=== PATIENT | female | born 2000 | race Hispanic/Latino ===

== ENCOUNTER 2019-08-21 22:28 | Inpatient (IN) | payer BC ==
[2019-08-21] MEDS ORDERED: Ondansetron PF 4 MG/2 ML Vial ONE (22:58)
[2019-08-21] MEDS ORDERED: Morphine 4 MG/ML VIAL ONE (22:58)
[2019-08-21 23:31] LABS: Base Excess-Venous -15.3 mmol/L (-2.0 to 3.0); CO2 Tension (PvCO2) 32.7 mmHg (40.0-50.0); Calcium, Ionized 0.94 mmol/L (See Comments:); Chloride 111 mmol/L (98-107); Hemoglobin - Calc 12.9 g/dL (12.0-16.0); Potassium 4.6 mmol/L (3.5-5.1); Sodium 133 mmol/L (138-145); vO2 Saturation-calc 49.7 % (60.0-85.0)
[2019-08-21 23:35] LABS: BHCG - Serum Negative (NEGATIVE); Pregs Control Background? CLEAR/WHITE (CLR/WHITE); Pregs Control Bar Appear? YES (CONTROL BAR)
[2019-08-21 23:39] LABS: #Basophils 0.1 thou/uL (0.0-0.2); #Lymphocytes 4.1 thou/uL (1.20-3.40); #Monocytes 0.7 thou/uL (0.11-0.59); #Neutrophils 10.6 thou/uL (1.40-6.50); %Basophils 0.7 % (0.0-1.0); %Eosinophils 0.2 % (0.0-10.0); %Lymphocytes 26.3 % (28.0-48.0); %Monocytes 4.4 % (0.0-4.0); %Neutrophils 68.4 % (31.0-61.0); Hemoglobin 12.5 g/dL (12.0-16.0); Mean Corpuscular HGB CONC 34.6 g/dL (32.0-36.0); Mean Corpuscular Hemoglobin 30.3 pg (25.0-35.0); Mean Corpuscular Volume 87.6 fL (78.0-98.0); Mean Platelet Volume 10.5 fL (7.4-10.4); Platelet Count 216 thou/uL (130-400); RBC Distribution Width 12.2 % (11.5-14.5); Red Blood Cell (RBC) Count 4.14 mill/uL (4.00-5.20); White Blood Cell (WBC) Count 15.5 thou/uL (4.8-10.8)
--- NOTE | 2019-08-21 23:47 | ULT ---
US Gallbladder RUQ HISTORY: Right upper quadrant pain. COMPARISON: None. FINDINGS: Real-time imaging of the right upper quadrant shows a normal-appearing gallbladder. No gall bladder wall thickening is seen. The common duct is 2 to 3 mm. There does appear to be a tiny amount of fluid adjacent to the gallbladder. There are diffuse fatty changes of the liver. The techno logist does describe a positive ultrasound Morrow's sign. Right kidney is normal in size and not obstructed. The liver measures 20 cm in length. The pancreas i s obscured. IMPRESSION: No evidence of gallstones. There does appear to be some minimal fluid or edema adjacent t o the gallbladder but no gallbladder wall thickening. Technologist does describe a positive ultrasound Morrow's sign. Further evaluation with hepatobiliary scan may be beneficial. The liver renee ws diffuse fatty change and appears slightly enlarged.
[2019-08-22 00:05] LABS: Bilirubin Negative (Negative); Blood, Urine Negative (Negative); Clarity Clear (Clear); Glucose, Urine (Dipstick) Greater than 1000 mg/dL (Negative); Leukocyte Negative Leu/uL (Negative); Nitrite Negative (Negative); Protein, Urine (Dipstick) 20 mg/dL (Neg-Trace); Urobilinogen Normal mg/dL (Less than 2)
[2019-08-22 00:19] LABS: ALT (SGPT) 49 U/L (8-55); AST (SGOT) 27 U/L (5-34); Albumin 3.5 g/dL (3.5-5.0); Alkaline Phosphatase 71 U/L (40-100); BUN (Urea Nitrogen) 5 mg/dL (7.0-18.7); Bilirubin, Total 0.4 mg/dL (0.2-1.2); Calc. Creatinine Clearance 0 mL/min (70-130); Calcium 7.2 mg/dL (7.8-10.44); Carbon Dioxide Less than 8 mmol/L (22-29); Chloride 109 mmol/L (98-107); Estimated GFR-MDRD Greater than 90; Globulin 3.3 g/dL (2.4-3.5); Glucose 212 mg/dL (70-105); Lipase 106 U/L (8-78); Potassium 4.8 mmol/L (3.5-5.1); Protein, Total 6.8 g/dL (6.0-8.3); Sodium 133 mmol/L (136-145)
[2019-08-22] MEDS ORDERED: Insulin Regular 100 units/100 ml in NS IVPB SCH (01:30)
[2019-08-22] MEDS ORDERED: D5 1/2 NS w/20 mEq KCL 1,000 ML ONE (02:22)
[2019-08-22] MEDS ORDERED: Dextrose 5% in Water 1,000 ML IV PRN (02:26)
[2019-08-22] MEDS ORDERED: Dextrose 5 %-0.45 % NaCl 1,000 ML IV PRN ×2 (02:26→03:00)
[2019-08-22] MEDS ORDERED: NS 0.9% w/ 20 MEQ KCL 1,000 ML/1,000 ML BAG IV PRN ×2 (02:26)
[2019-08-22] MEDS ORDERED: Dextrose 50% Abboject 50 ML SYRINGE SLOW IVP PRN (02:26)
[2019-08-22] MEDS ORDERED: D5 1/2 NS w/20 mEq KCL 1,000 ML IV PRN (02:26)
[2019-08-22] MEDS ORDERED: Sodium Chloride 0.9% 1,000 ML IV PRN ×8 (02:26→03:00)
[2019-08-22] MEDS ORDERED: PHOS-NAK 1 PKT PACK PO PRN ×4 (02:27→03:06)
[2019-08-22] MEDS ORDERED: Potassium Chloride 40 MEQ in Premix Bag 1 BAG IVPB PRN ×2 (02:27→03:06)
[2019-08-22] MEDS ORDERED: Potassium Chloride 40 MEQ in Sodium Chloride 0.9% 250 ML 250 ML IVPB PRN ×2 (02:27→03:06)
[2019-08-22] MEDS ORDERED: Magnesium 2 GM/50 ML 2 GM in Premix Bag 1 BAG IVPB PRN ×2 (02:27→03:06)
[2019-08-22] MEDS ORDERED: CCU ELECTROLYTE REPLACEMENT PROTOCOL FS PRN ×2 (02:27→03:06)
[2019-08-22] MEDS ORDERED: Potassium Phosphate 12 MMOL in Sodium Chloride 0.9% 250 ML 250 ML IV PRN ×2 (02:27→03:06)
[2019-08-22] MEDS ORDERED: Potassium Chloride 20 MEQ TAB PO PRN ×2 (02:27→03:06)
[2019-08-22] MEDS ORDERED: Potassium Phosphate 9 MMOL in Sodium Chloride 0.9% 100 ML IVPB PRN (02:27)
[2019-08-22] MEDS ORDERED: Magnesium Oxide 400 MG TAB PO PRN ×4 (02:27→03:06)
[2019-08-22] MEDS ORDERED: Potassium Phosphate 15 MMOL in Sodium Chloride 0.9% 250 ML 250 ML IV PRN ×2 (02:27→03:06)
[2019-08-22] MEDS ORDERED: HUMULIN R 100 UNITS in Sodium Chloride 0.9% 100 ML IVPB SCH (02:30)
[2019-08-22] MEDS ORDERED: ADD ELECTROLYTE REPLACEMENT SET TO PROFILE FS SCH (02:30)
[2019-08-22 02:46] VITALS: BMI 27.3
--- NOTE | 2019-08-22 02:50 | HP ---
PRIMARY CARE PHYSICIAN: The patient currently does not have a primary care physician. CHIEF COMPLAINT: Abdominal pain. HISTORY OF PRESENT ILLNESS: Ms. Harper is a pleasant 18-year-old female, who has a history of diabetes during . She says that while being , she developed diabetes mellitus and says that the diabetes continued until after the . She admits to being placed on medications for diabetes several months after being and it appears after that she has essentially lost to followup and has not been on any medications. She says that on Thursday afternoon, she was coming back from an outing and noticed that she was having pain in the right upper quadrant. She says it radiated into her chest and she also was having some nausea. She says that the pain would actually get better if she try to lay on her left side. It was worse with movement. She vomited once, but denies any fevers or chills. No change in her bowels. She denies any polyuria or polydipsia or any change in her visions. But as a result of the pain, she came to the ER for evaluation. There, she was found to be severely acidotic with a bicarb less than 8. Her pH was 7.1 on blood gas. Her blood sugar was only slightly elevated, but she has an anion gap and positive beta hydroxybutyrate, and she is being admitted for DKA. REVIEW OF SYSTEMS: All systems were reviewed and are negative except for that mentioned in the history of present illness. PAST MEDICAL HISTORY: Significant for diabetes mellitus during and hypertension. PAST SURGICAL HISTORY: She had a , as well as an appendectomy. ALLERGIES: NO KNOWN DRUG ALLERGIES. SOCIAL HISTORY: She is a nonsmoker and nondrinker. She has one child. FAMILY HISTORY: Significant for diabetes mellitus in both parents. CURRENT MEDICATIONS: None. PHYSICAL EXAMINATION: GENERAL: She is alert and oriented. She appears to be in no acute distress. She is well developed and well nourished. VITAL SIGNS: Her blood pressure was 136/90, heart rate 138, respiratory rate of 20, temperature was 100, O2 saturation is 100% on room air. HEENT: Pupils are equal, round, and reactive. Extraocular muscles are intact. Her sclerae anicteric. Throat, no erythema, no exudates. NECK: No adenopathy. No bruits. LUNGS: Clear to auscultation. There is no wheezing, no rales, no rhonchi. CARDIOVASCULAR: She has a normal S1 and S2. There is no S3 or S4. No murmurs, clicks, or rubs. Heart rate is tachycardic. ABDOMEN: Soft, obese. She does have right upper quadrant tenderness. She did have some mild rebound tenderness, but there was no guarding. Bowel sounds are present. Her liver span did appear to be slightly enlarged. EXTREMITIES: There is no clubbing or cyanosis. No edema. No calf tenderness. No joint effusions. Good dorsalis pedis and posterior tibial pulses. SKIN AND INTEGUMENT: No skin changes. No rash. LABORATORY RESULTS: White blood cell count 15.5, hemoglobin 12.5, hematocrit is 36.3, and platelet count is 216. Sodium 138, potassium 4.6, chloride is 111. Urinalysis shows ketones as well as glucose, and beta hydroxybutyrate was elevated at 3.18. She had an abdominal ultrasound in which there was evidence of fatty change. No evidence of gallstones, but there was some minimal fluid adjacent to the gallbladder, but no gallbladder wall thickening. ASSESSMENT: This is a 18-year-old female, who presents to the emergency room with abdominal pain, elevated white count, metabolic acidosis with high anion gap, I calculated it out to be approximately 16, as well as positive beta hydroxybutyrate. She will be admitted for diabetic ketoacidosis and started on an insulin drip. She may need D5 solution while on the insulin drip to protect her from hypoglycemia until her anion gap and acidosis have improved. We will re-evaluate her with regard to the abdominal pain. If this pain persist after the acidosis has improved, then it would likely be in her best interest to get a HIDA scan to rule out acalculous cholecystitis. We will place her on empiric antibiotics including Rocephin and Flagyl. In the interim, get blood cultures as well. Further recommendations to follow. Job ID: [id number]
[2019-08-22] MEDS ORDERED: CCU Electrolyte Replacement 1 EACH IVPB ONE (03:00)
[2019-08-22] MEDS ORDERED: Ondansetron ODT 4 MG TAB PO PRN (03:00)
[2019-08-22] MEDS ORDERED: NS 0.9% w/ 20 MEQ KCL 1,000 ML IV PRN ×2 (03:00)
[2019-08-22] MEDS: cefTRIAXone\\ROCEPHIN 1 GM in Sodium Chloride 0.9% 100 ML IVPB SCH (03:24)
[2019-08-22 03:36] LABS: #Basophils 0.1 thou/uL (0.0-0.2); #Monocytes 0.6 thou/uL (0.11-0.59); #Neutrophils 9.9 thou/uL (1.40-6.50); %Basophils 0.7 % (0.0-1.0); %Eosinophils 0.3 % (0.0-10.0); %Lymphocytes 21.8 % (28.0-48.0); %Monocytes 4.5 % (0.0-4.0); %Neutrophils 72.8 % (31.0-61.0); Hemoglobin 11.4 g/dL (12.0-16.0); Mean Corpuscular HGB CONC 33.5 g/dL (32.0-36.0); Mean Corpuscular Hemoglobin 28.6 pg (25.0-35.0); Mean Corpuscular Volume 85.5 fL (78.0-98.0); Mean Platelet Volume 10.5 fL (7.4-10.4); Platelet Count 204 thou/uL (130-400); RBC Distribution Width 12.1 % (11.5-14.5); Red Blood Cell (RBC) Count 3.98 mill/uL (4.00-5.20); White Blood Cell (WBC) Count 13.7 thou/uL (4.8-10.8)
[2019-08-22 03:55] LABS: Anion Gap 14 mmol/L (10-20); BUN (Urea Nitrogen) Less than 4 mg/dL (7.0-18.7); Calc. Creatinine Clearance 132 mL/min (70-130); Calcium 7.5 mg/dL (7.8-10.44); Carbon Dioxide 11 mmol/L (22-29); Chloride 110 mmol/L (98-107); Estimated GFR-MDRD Greater than 90; Glucose 228 mg/dL (70-105); Potassium 3.7 mmol/L (3.5-5.1); Sodium 131 mmol/L (136-145)
[2019-08-22 04:03] LABS: Phosphorus 1.4 mg/dL (2.3-4.7)
[2019-08-22] MEDS: Potassium Phosphate 9 MMOL in Sodium Chloride 0.9% 100 ML IVPB PRN ×2 (05:37→15:11)
[2019-08-22] MEDS: metroNIDAZOLE 500 MG in Premix Bag 1 BAG IVPB SCH ×3 (05:51→21:41)
[2019-08-22] MEDS: D5 1/2 NS w/20 mEq KCL 1,000 ML IV PRN ×4 (06:23→22:52)
[2019-08-22] MEDS ORDERED: Morphine 4 MG/ML VIAL SLOW IVP SCH (06:45)
[2019-08-22 08:25] LABS: Anion Gap 12 mmol/L (10-20); BUN (Urea Nitrogen) Less than 4 mg/dL (7.0-18.7); Calc. Creatinine Clearance 138 mL/min (70-130); Calcium 7.7 mg/dL (7.8-10.44); Carbon Dioxide 15 mmol/L (22-29); Chloride 108 mmol/L (98-107); Estimated GFR-MDRD Greater than 90; Glucose 180 mg/dL (70-105); Potassium 3.6 mmol/L (3.5-5.1); Sodium 131 mmol/L (136-145)
[2019-08-22 08:27] LABS: Phosphorus 1.3 mg/dL (2.3-4.7)
[2019-08-22] MEDS: Enoxaparin Sodium 40 MG/0.4 ML SYRINGE SC SCH (08:42)
[2019-08-22] MEDS ORDERED: FLU VACC QS2019-20(6MOS UP)/PF 60 MCG/0.5 ML SYRINGE IM ONE (09:00)
[2019-08-22] MEDS ORDERED: Prevnar 13-Val Conj/PF 0.5 ML SYRINGE IM ONE (09:00)
[2019-08-22 09:27] LABS: Phosphorus 1.3 mg/dL (2.3-4.7)
[2019-08-22 12:28] LABS: Anion Gap 11 mmol/L (10-20); BUN (Urea Nitrogen) Less than 4 mg/dL (7.0-18.7); Calc. Creatinine Clearance 150 mL/min (70-130); Calcium 7.9 mg/dL (7.8-10.44); Carbon Dioxide 16 mmol/L (22-29); Chloride 109 mmol/L (98-107); Estimated GFR-MDRD Greater than 90; Glucose 154 mg/dL (70-105); Potassium 3.5 mmol/L (3.5-5.1); Sodium 132 mmol/L (136-145)
[2019-08-22] MEDS: HUMULIN R 100 UNITS in Sodium Chloride 0.9% 100 ML IVPB SCH (15:12)
[2019-08-22] MEDS: Morphine 4 MG/ML VIAL SLOW IVP PRN ×2 (17:18→21:36)
[2019-08-22 17:34] LABS: Acetaminophen Less than 6.0 mcg/mL (10.0-30.0); Alcohol Less than 10 mg/dL (Less than 10); Salicylate Less than 8.0 mg/dL (15.0-30.0)
[2019-08-22 17:58] LABS: Amphetamine Not Detected (NotDetected); Barbiturates Screen Not Detected (NotDetected); Benzodiazepine Screen Not Detected (NotDetected); Cocaine Metabolite Screen Not Detected (NotDetected); Medtox Control Line Valid? VALID (VALID); Medtox Reader # READER 4; Methadone Not Detected (NotDetected); Methamphetamine Not Detected (NotDetected); Opiate Screen Detected (NotDetected); Oxycodone Screen Not Detected (NotDetected); Phencyclidine (PCP) Not Detected (NotDetected); THC/Cannabinoid Screen Not Detected (NotDetected); Tricyclic Screen Not Detected (NotDetected)
--- NOTE | 2019-08-22 20:23 | PDOC.EVN ---
Event Note - Event Note Event Note: Patient admitted with normoglycemic DKA, now with normalized gap, still with some acidosis but much better. Patient still with significant RUQ pain, had positive Morrow's during U/S and some fluid around gallbladder, but no stones/ sludge/wall thickening. On Rocephin. Will check HIDA scan in AM to make sure gallbladder not the instigator behind the DKA.
[2019-08-23] MEDS: cefTRIAXone\\ROCEPHIN 1 GM in Sodium Chloride 0.9% 100 ML IVPB SCH (03:03)
[2019-08-23] MEDS: D5 1/2 NS w/20 mEq KCL 1,000 ML IV PRN ×4 (03:04→17:27)
[2019-08-23 03:53] LABS: #Eosinphils 0.1 thou/uL (0.0-0.7); #Lymphocytes 1.7 thou/uL (1.20-3.40); #Monocytes 0.5 thou/uL (0.11-0.59); %Basophils 0.6 % (0.0-1.0); %Lymphocytes 20.2 % (28.0-48.0); %Monocytes 5.6 % (0.0-4.0); %Neutrophils 72.7 % (31.0-61.0); Hemoglobin 10.9 g/dL (12.0-16.0); Mean Corpuscular HGB CONC 34.1 g/dL (32.0-36.0); Mean Corpuscular Hemoglobin 28.7 pg (25.0-35.0); Mean Corpuscular Volume 84.3 fL (78.0-98.0); Mean Platelet Volume 10.3 fL (7.4-10.4); Platelet Count 194 thou/uL (130-400); RBC Distribution Width 12.1 % (11.5-14.5); Red Blood Cell (RBC) Count 3.79 mill/uL (4.00-5.20); White Blood Cell (WBC) Count 8.2 thou/uL (4.8-10.8)
[2019-08-23 04:09] LABS: Anion Gap 11 mmol/L (10-20); BUN (Urea Nitrogen) Less than 4 mg/dL (7.0-18.7); Calc. Creatinine Clearance 183 mL/min (70-130); Calcium 8.2 mg/dL (7.8-10.44); Carbon Dioxide 21 mmol/L (22-29); Chloride 107 mmol/L (98-107); Estimated GFR-MDRD Greater than 90; Glucose 165 mg/dL (70-105); Potassium 3.3 mmol/L (3.5-5.1); Sodium 136 mmol/L (136-145)
[2019-08-23 04:09] LABS: Phosphorus 1.4 mg/dL (2.3-4.7)
[2019-08-23] MEDS: Potassium Phosphate 9 MMOL in Sodium Chloride 0.9% 100 ML IVPB PRN (04:56)
[2019-08-23] MEDS: Morphine 4 MG/ML VIAL SLOW IVP PRN ×2 (04:58→17:10)
[2019-08-23] MEDS: metroNIDAZOLE 500 MG in Premix Bag 1 BAG IVPB SCH ×3 (06:14→22:07)
[2019-08-23] MEDS: HUMULIN R 100 UNITS in Sodium Chloride 0.9% 100 ML IVPB SCH (07:22)
[2019-08-23] MEDS: Enoxaparin Sodium 40 MG/0.4 ML SYRINGE SC SCH (09:35)
[2019-08-23] MEDS: Ondansetron PF 4 MG/2 ML Vial IVP PRN ×2 (10:19→14:23)
--- NOTE | 2019-08-23 10:36 | PDOC.HOSPP ---
- Subjective Encounter Date: 08/23/19 Encounter Time: 14:00 Subjective: Patient with persistent CINTIA and RUQ pain, otherwise feeling a bit better today. Had HIDA scan, just arrived back and feeling nauseated. NPO currently. - Objective Vital Signs & Weight: Vital Signs (12 hours) Temp 08/23/19 07:04 97.7 F 08/23/19 03:28 98.1 F 08/22/19 23:14 98.9 F Weight Admit Weight 131 lb Weight 131 lb Most Recent Monitor Data Heart Rate from ECG 104 NIBP 122/78 NIBP BP-Mean 92 Respiration from ECG 3 SpO2 97 I&O: 08/22/19 08/23/19 08/24/19 06:59 06:59 06:59 Intake Total 1290 6210.8 Output Total 2100 3375 Balance -810 2835.8 Result Diagrams: 08/23/19 03:34 08/23/19 03:34 Additional Labs: Accuchecks 08/23/19 08/23/19 08/23/19 10:06 08:57 08:04 POC Glucose 206 H 169 H 166 H 08/23/19 08/23/19 08/23/19 07:26 06:07 05:18 POC Glucose 161 H 143 H 153 H 08/23/19 08/23/19 08/23/19 04:11 03:01 02:05 POC Glucose 158 H 152 H 160 H 08/23/19 08/23/19 08/22/19 01:06 00:05 22:59 POC Glucose 158 H 158 H 156 H 08/22/19 08/22/19 08/22/19 22:05 21:24 20:10 POC Glucose 190 H 171 H 187 H 08/22/19 08/22/19 08/22/19 19:00 18:09 17:27 POC Glucose 193 H 204 H 199 H 08/22/19 08/22/19 08/22/19 16:11 15:06 14:15 POC Glucose 211 H 185 H 167 H 08/22/19 08/22/19 08/22/19 13:05 12:05 11:09 POC Glucose 141 H 163 H 164 H Hospitalist ROS - Review of Systems Constitutional: denies: fever, chills Respiratory: denies: cough, shortness of breath Cardiovascular: denies: chest pain, palpitations, orthopnea Gastrointestinal: reports: nausea, abdominal pain. denies: vomiting, diarrhea, constipation Genitourinary: denies: dysuria - Medication Medications: Active Medications Generic Name Dose Route Start Last Admin Trade Name Freq PRN Reason Stop Dose Admin Enoxaparin Sodium 40 mg 08/22/19 09:00 08/23/19 09:35 Lovenox SC 40 mg 0900 COLE Administration Ceftriaxone Sodium 1 gm/ 100 mls @ 200 mls/hr 08/22/19 03:00 08/23/19 03:03 Sodium Chloride IVPB 100 mls Q24HR COLE Administration Potassium Chloride/Dextrose/Sod Cl 1,000 mls @ 250 mls/hr 08/22/19 03:00 03/05 07:22 D5 1/2 Ns W/20 Meq Kcl IV 1,000 mls .Q4H PRN Administration Step 4 of DKA Protocol Protocol Insulin Human Regular 100 101 mls @ 0 mls/hr 08/22/19 03:00 08/23/19 07:22 units/ Sodium Chloride IVPB 101 mls INF COLE Administration Protocol Titrate Metronidazole 500 mg/ Device 100 mls @ 100 mls/hr 08/22/19 06:00 08/23/19 06: 14 IVPB 100 mls Q8HR COLE Administration Potassium Chloride 40 meq/ 270 mls @ 135 mls/hr 08/22/19 03:06 08/23/19 09:35 Sodium Chloride IVPB 270 mls ASDIR PRN Administration FOR SERUM K+ 2.5 - 3.5 Potassium Phosphate 9 mmol/ 103 mls @ 25.75 mls/hr 08/22/19 03:06 08/23/19 04 :56 Sodium Chloride IVPB 103 mls ASDIR PRN Administration Phosphate 1.0-1.8 Miscellaneous Medication 1 pkt 08/22/19 03:06 08/22/19 04:31 Phos-Nak PO 1 pkt TIDPRN PRN Administration FOR PHOS LEVEL 1.0 - 1.8 Morphine Sulfate 4 mg 08/22/19 15:38 08/23/19 04:58 Morphine SLOW IVP 4 mg Q4H PRN Administration Severe Pain (7-10) Ondansetron HCl 4 mg 08/22/19 03:00 08/23/19 10:19 Zofran IVP 4 mg Q6H PRN Administration Nausea/Vomiting - Exam General Appearance: NAD, awake alert Eye: anicteric sclera ENT: moist mucosa Heart: RRR, no murmur, no gallops, no rubs Respiratory: CTAB, no wheezes, no rales, no ronchi Gastrointestinal: soft, non-distended, normal bowel sounds, tender to palpation Gastrointestinal - other findings: positive Morrow's sign Neurological: no focal deficits Psychiatric: normal affect, normal behavior, A&O x 3 Hosp A/P (1) Diabetic ketoacidosis Code(s): E11.10 - TYPE 2 DIABETES MELLITUS WITH KETOACIDOSIS WITHOUT COMA Status: Acute (2) Abdominal pain Code(s): R10.9 - UNSPECIFIED ABDOMINAL PAIN Status: Acute (3) Diabetes mellitus Code(s): E11.9 - TYPE 2 DIABETES MELLITUS WITHOUT COMPLICATIONS Status: Acute - Plan continue antibiotics Leukocytosis resolved, on Rocephin and Metronidazole, Blood cultures NGTD Normoglycemic DKA, unusual presentation but has responded very well to IV sugar and insulin, gap closed and bicarb up above 20 Persistent abdominal pain with positive sonographic morrow's sign yesterday, concern for acute cholecystitis as source of tip over into DKA. Checking HIDA scan this morning- EF 22%, Dr. Pruitt consulted HbA1c 12, patient has likely had undiagnosed DM for some time, possibly ever since her . May be Type 1 now, will need insulin on discharge. Continue insulin drip for now with D5NS drip until surgical consultation and decision.
[2019-08-23 14:23] LABS: Hemoglobin A1c 12.2 % (4.0-6.0)
--- NOTE | 2019-08-23 14:28 | NM ---
HEPATOBILIARY SCAN: HISTORY: Abdominal pain. No gallstones on gallbladder of 08/21/2019. RADIOPHARMACEUTICAL: 4.5 mCi Technetium 99m-Mebrofenin injected intravenously. FINDINGS: There is good tracer extraction by the liver with prompt excretion into the biliary tract and small b owel loops and normal filling of the gallbladder. The calculated gallbladder ejection fraction after a 30-minute IV infusion of 1.1 mcg CCK measures 22%. The patient was also pretreated with an IV dose of 1.1 mcg CCK-8 30 minutes prior to the ingestion of the radiopharmaceutical. 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 POS: OFF
[2019-08-23] MEDS ORDERED: ACETAMINOPHEN IVPB SCH (16:15)
[2019-08-23] MEDS ORDERED: Acetaminophen 650 MG Suppository PR SCH ×2 (16:30→17:00)
[2019-08-23] MEDS ORDERED: Acetaminophen 325 MG TAB PO SCH (16:45)
[2019-08-23 18:36] LABS: Anion Gap 13 mmol/L (10-20); BUN (Urea Nitrogen) Less than 4 mg/dL (7.0-18.7); Calc. Creatinine Clearance 175 mL/min (70-130); Calcium 8.4 mg/dL (7.8-10.44); Carbon Dioxide 23 mmol/L (22-29); Chloride 106 mmol/L (98-107); Estimated GFR-MDRD Greater than 90; Glucose 205 mg/dL (70-105); Potassium 3.7 mmol/L (3.5-5.1); Sodium 138 mmol/L (136-145)
[2019-08-23] MEDS ORDERED: Insulin Glargine 30 UNITS in Pre-Filled Syringe 1 EACH SC SCH (19:45)
--- NOTE | 2019-08-23 22:30 | CON ---
DATE OF CONSULTATION: REQUESTING PHYSICIAN: Jhony Hurley MD. CONSULTING PHYSICIAN: Dr. Pruitt. HISTORY OF PRESENT ILLNESS: Ms. Harper is a 18-year-old female who came into evaluation of abdominal pain. The patient reports she had abdominal pain since Thursday last week, which was going on for 5 days now. Pain is in the upper right quadrant. At first pain did come and go, pain was getting worse after a meal. Since yesterday, the patient reports right upper quadrant pain became more constant. The patient reports no fever or shortness of breath. Nausea and vomiting resolved. Bowel and urination are normal. The patient reports this is the first time she has this kind of pain. REVIEW OF SYSTEMS: Noncontributory except per HPI. PAST MEDICAL HISTORY: Gestational diabetes. PAST SURGICAL HISTORY: and appendectomy. ALLERGIES: NO KNOWN NO ALLERGIES. SOCIAL HISTORY: The patient lives at home. Denies drug use. Denies smoking. Drinks socially. CURRENT MEDICATION: None. PHYSICAL EXAMINATION: GENERAL: The patient lying on bed comfortable with no acute respiratory distress. Pain is minimum at around 5-6/10. VITAL SIGNS: Temperature 97.9, blood pressure 114/69, heart rate 84, respiratory rate 18. LUNGS: Clear bilaterally. HEART: Regular rate and rhythm. ABDOMEN: Soft, nondistended. Pain from the right upper quadrant, only she has with palpation. Bowel sounds normal. EXTREMITIES: Neurovascularly intact x4. LABORATORY DATA: Initial workup with abdominal ultrasound showed no evidence of gallstone. There appeared some minimal fluid or edema adjacent to the gallbladder, but no gallbladder wall thickness, positive Morrow sign. HIDA scan consistent with chronic acalculous cholecystitis or gallbladder dyskinesia. PLAN: The patient was examined by Dr. Pruitt. The patient will be n.p.o. at midnight and Dr. Pruitt will take the patient to the OR tomorrow. Continue pain control. Continue IV fluid. Continue nonpharmacological DVT prophylaxis. Job ID: [id number]
[2019-08-24] MEDS: cefTRIAXone\\ROCEPHIN 1 GM in Sodium Chloride 0.9% 100 ML IVPB SCH (02:59)
[2019-08-24 03:39] LABS: Anion Gap 11 mmol/L (10-20); BUN (Urea Nitrogen) Less than 4 mg/dL (7.0-18.7); Calc. Creatinine Clearance 165 mL/min (70-130); Calcium 8.7 mg/dL (7.8-10.44); Carbon Dioxide 27 mmol/L (22-29); Chloride 104 mmol/L (98-107); Estimated GFR-MDRD Greater than 90; Glucose 212 mg/dL (70-105); Potassium 3.5 mmol/L (3.5-5.1); Sodium 138 mmol/L (136-145)
[2019-08-24] MEDS: Ondansetron PF 4 MG/2 ML Vial IVP PRN (04:40)
[2019-08-24] MEDS: Morphine 4 MG/ML VIAL SLOW IVP PRN (04:41)
[2019-08-24] MEDS: metroNIDAZOLE 500 MG in Premix Bag 1 BAG IVPB SCH ×3 (05:52→22:21)
[2019-08-24] MEDS ORDERED: HumaLOG 300 UNITS/3 ML VIAL SC PRN (06:17)
[2019-08-24] MEDS ORDERED: Dextrose 5% in Water 1,000 ML IV PRN (06:17)
[2019-08-24] MEDS ORDERED: Dextrose 50 % In Water 50 ML SYRINGE IV PRN (06:17)
[2019-08-24] MEDS: Enoxaparin Sodium 40 MG/0.4 ML SYRINGE SC SCH (08:47)
[2019-08-24] MEDS: Insulin Regular 300 UNITS/3 ML VIAL SC PRN ×2 (08:49→22:43)
[2019-08-24] MEDS ORDERED: Rocuronium Bromide 10 MG/ML (10ML VIAL) ONE (10:07)
[2019-08-24] MEDS ORDERED: Ondansetron PF 4 MG/2 ML Vial ONE (10:07)
[2019-08-24] MEDS ORDERED: Lidocaine 1% PF 5 ML VIAL ONE (10:07)
[2019-08-24] MEDS ORDERED: Ketorolac Tromethamine 30 MG/ML VIAL ONE (10:07)
[2019-08-24] MEDS ORDERED: Esmolol 100 MG/10 ML VIAL ONE (10:07)
[2019-08-24] MEDS ORDERED: PROPOFOL 200 MG/20 ML VIAL ONE (10:07)
[2019-08-24] MEDS ORDERED: Glycopyrrolate 0.2 MG/ML 5 ML SYRINGE ONE (10:07)
[2019-08-24] MEDS ORDERED: Metoprolol Tartrate 5 MG/5 ML VIAL ONE (10:07)
--- NOTE | 2019-08-24 10:11 | PDOC.HOSPP ---
- Subjective Encounter Date: 08/24/19 Encounter Time: 12:00 Subjective: Patient feeling a bit better this AM. Off insulin drip, had Lantus injection last night. Still with some CINTIA/RUQ pain and nausea. No fever. Add on to surgery today so likely in the afternoon will go for cholecystectomy. - Objective Vital Signs & Weight: Vital Signs (12 hours) Temp Pulse Ox 08/24/19 08:00 98 08/24/19 07:25 97.7 F 08/24/19 04:00 98.4 F 08/24/19 00:00 99 F Weight Admit Weight 131 lb Weight 131 lb Most Recent Monitor Data Heart Rate from ECG 103 NIBP 129/80 NIBP BP-Mean 96 Respiration from ECG 20 SpO2 96 I&O: 08/23/19 08/24/19 08/25/19 06:59 06:59 06:59 Intake Total 6210.8 4123.2 Output Total 3375 4800 Balance 2835.8 -676.8 Result Diagrams: 08/23/19 03:34 08/24/19 02:58 Additional Labs: Accuchecks 08/24/19 08/24/19 08/24/19 08:03 05:59 04:16 POC Glucose 224 H 257 H 209 H 08/24/19 08/24/19 08/23/19 02:23 00:14 23:21 POC Glucose 193 H 132 H 128 H 08/23/19 08/23/19 08/23/19 22:10 21:11 20:16 POC Glucose 112 H 145 H 162 H 08/23/19 08/23/19 08/23/19 19:17 18:13 16:02 POC Glucose 187 H 200 H 194 H 08/23/19 08/23/19 08/23/19 15:07 14:10 13:20 POC Glucose 200 H 191 H 204 H 08/23/19 08/23/19 08/23/19 12:26 10:48 10:06 POC Glucose 212 H 219 H 206 H Hospitalist ROS - Review of Systems Constitutional: denies: fever, chills Respiratory: denies: cough, shortness of breath Cardiovascular: denies: chest pain, palpitations, orthopnea Gastrointestinal: reports: nausea, abdominal pain. denies: vomiting, diarrhea, constipation - Medication Medications: Active Medications Generic Name Dose Route Start Last Admin Trade Name Freq PRN Reason Stop Dose Admin Enoxaparin Sodium 40 mg 08/22/19 09:00 08/24/19 08:47 Lovenox SC Not Given 0900 COLE Ceftriaxone Sodium 1 gm/ 100 mls @ 200 mls/hr 08/22/19 03:00 08/24/19 02:59 Sodium Chloride IVPB 100 mls Q24HR COLE Administration Potassium Chloride/Dextrose/Sod Cl 1,000 mls @ 250 mls/hr 08/22/19 03:00 03/05 17:27 D5 1/2 Ns W/20 Meq Kcl IV 1,000 mls .Q4H PRN Administration Step 4 of DKA Protocol Protocol Insulin Human Regular 100 101 mls @ 0 mls/hr 08/22/19 03:00 08/23/19 07:22 units/ Sodium Chloride IVPB 101 mls INF COLE Administration Protocol Titrate Metronidazole 500 mg/ Device 100 mls @ 100 mls/hr 08/22/19 06:00 08/24/19 05: 52 IVPB 100 mls Q8HR COLE Administration Potassium Chloride 40 meq/ 270 mls @ 135 mls/hr 08/22/19 03:06 08/23/19 09:35 Sodium Chloride IVPB 270 mls ASDIR PRN Administration FOR SERUM K+ 2.5 - 3.5 Potassium Phosphate 9 mmol/ 103 mls @ 25.75 mls/hr 08/22/19 03:06 08/23/19 04 :56 Sodium Chloride IVPB 103 mls ASDIR PRN Administration Phosphate 1.0-1.8 Insulin Human Regular 0 units 08/24/19 06:17 08/24/19 08:49 Humulin R SC 3 units .MILD SLIDING SCALE PRN Administration Mild Correctional Scale Miscellaneous Medication 1 pkt 08/22/19 03:06 08/22/19 04:31 Phos-Nak PO 1 pkt TIDPRN PRN Administration FOR PHOS LEVEL 1.0 - 1.8 Morphine Sulfate 4 mg 08/22/19 15:38 08/24/19 04:41 Morphine SLOW IVP 4 mg Q4H PRN Administration Severe Pain (7-10) Ondansetron HCl 4 mg 08/22/19 03:00 08/24/19 04:40 Zofran IVP 4 mg Q6H PRN Administration Nausea/Vomiting - Exam General Appearance: NAD Eye: anicteric sclera ENT: moist mucosa Heart: RRR, no murmur, no gallops, no rubs Respiratory: CTAB, no wheezes, no rales, no ronchi Gastrointestinal: soft, non-distended, normal bowel sounds, no rigidity, tender to palpation, voluntary guarding Gastrointestinal - other findings: TTP CINTIA/RUQ Neurological: no focal deficits Psychiatric: normal affect, normal behavior, A&O x 3 Hosp A/P (1) Diabetic ketoacidosis Code(s): E11.10 - TYPE 2 DIABETES MELLITUS WITH KETOACIDOSIS WITHOUT COMA Status: Resolved (2) Abdominal pain Code(s): R10.9 - UNSPECIFIED ABDOMINAL PAIN Status: Acute (3) Diabetes mellitus Code(s): E11.9 - TYPE 2 DIABETES MELLITUS WITHOUT COMPLICATIONS Status: Acute - Plan Leukocytosis resolved, on Rocephin and Metronidazole, Blood cultures NGTD Normoglycemic DKA, unusual presentation but has responded very well to IV sugar and insulin, gap closed and bicarb normalized Transitioned to long acting insulin last night and off insulin drip. Blood sugars a little high, will switch to 1/2NS Persistent abdominal pain with positive sonographic solares's sign yesterday, concern for acute cholecystitis as source of tip over into DKA. HIDA scan- EF 22%, Dr. Pruitt consulted- planning on cholecystectomy HbA1c 12, patient has likely had undiagnosed DM for some time, possibly ever since her . May be Type 1 now, will need insulin on discharge.
[2019-08-24] MEDS ORDERED: Acetaminophen 650 MG Suppository PR PRN (10:20)
[2019-08-24] MEDS ORDERED: diphenhydrAMINE 50 MG/ML VIAL IVP SCH (10:30)
[2019-08-24] MEDS ORDERED: Metoclopramide HCl 10 MG/2 ML VIAL IVP SCH (10:30)
[2019-08-24] MEDS: Sodium Chloride 0.45% 1,000 ML IV SCH ×2 (10:47→22:21)
[2019-08-24] MEDS ORDERED: Bupivacaine PF 0.5% 30 ML VIAL ONE (17:47)
[2019-08-24] MEDS ORDERED: Lidocaine 1% w/Epinephrine 1:100K 20 ML VIAL ONE (17:47)
[2019-08-24] MEDS ORDERED: Fentanyl 100 MCG/2 ML VIAL ONE (18:06)
[2019-08-24] MEDS ORDERED: Midazolam HCl 2 mg/2 ml Vial ONE (18:06)
[2019-08-24] MEDS ORDERED: traMADol HCl 50 MG TAB PO PRN ×2 (19:59)
[2019-08-24] MEDS ORDERED: Albuterol Sulfate 1.25 MG/3 ML NEB ONE ×2 (20:04→20:07)
[2019-08-24] MEDS ORDERED: Sodium Chloride For Inhalation 0.9% 3 ML NEB ONE ×2 (20:05→20:07)
[2019-08-24] MEDS ORDERED: HYDROmorphone 2 MG/ML VIAL SLOW IVP PRN (20:09)
[2019-08-24] MEDS ORDERED: Promethazine HCl 25 MG/ML VIAL IM PRN (20:09)
[2019-08-24] MEDS ORDERED: PACU-Morphine 4MG/ML VIAL SLOW IVP PRN (20:09)
[2019-08-24] MEDS ORDERED: Ondansetron HCl/PF 4 MG/2 ML Vial IVP PRN (20:09)
[2019-08-24] MEDS ORDERED: Promethazine HCl 25 MG/ML VIAL SLOW IVP PRN (20:09)
[2019-08-24] MEDS: Pantoprazole 40 MG VIAL IVP SCH (22:04)
[2019-08-24] MEDS: Acetaminophen 650 MG Suppository PR SCH (22:04)
[2019-08-24] MEDS: Insulin Glargine 30 UNITS in Pre-Filled Syringe 1 EACH SC SCH (22:51)
[2019-08-25] MEDS: Ondansetron PF 4 MG/2 ML Vial IVP PRN ×2 (00:09→12:44)
[2019-08-25] MEDS: Morphine 4 MG/ML VIAL SLOW IVP PRN ×3 (00:09→09:07)
[2019-08-25] MEDS: Acetaminophen 650 MG Suppository PR SCH ×3 (01:49→18:15)
--- NOTE | 2019-08-25 01:56 | OP ---
DATE OF PROCEDURE: 08/24/2019 PREOPERATIVE DIAGNOSES: 1. Acute acalculous cholecystitis. 2. Status post diabetic ketoacidosis. POSTOPERATIVE DIAGNOSES: 1. Acute acalculous cholecystitis. 2. Status post diabetic ketoacidosis. OPERATION PERFORMED: Laparoscopic cholecystectomy. ANESTHESIA: General endotracheal. ESTIMATED BLOOD LOSS: 5 mL. FLUIDS GIVEN: 1200 mL crystalloids. COUNTS: Sponge and instrument counts were verified as correct x2. COMPLICATIONS: None apparent at the time of operation. INDICATIONS FOR OPERATION: This is a 18-year-old woman, G1, P1, who presented with DKA. Clinical radiographic examination was consistent with acute acalculous cholecystitis. DKA is resolved and patient was brought to the operating room today for laparoscopic cholecystectomy. Findings are consistent with dilated gallbladder devoid of stones. The gallbladder was partially encased by omental adhesions. DESCRIPTION OF PROCEDURE: Informed consent was obtained from the patient, brought to the operating room and placed in supine position. Following general anesthesia, the abdomen was sterilely prepped and draped in usual fashion. The skin below the umbilicus was infiltrated with 0.25% Marcaine with epinephrine. A small curvilinear infraumbilical incision was made using 11 scalpel. Umbilical stalk grasped with Lorna and elevated. Veress needle was inserted through the incision and placed in the peritoneal cavity through which the abdomen was insufflated with 3 L of CO2 gas. Intraabdominal pressure noted at 1 mmHg. Following abdominal insufflation, Veress needle was removed and a 5 mm trocar was introduced using a Visiport under laparoscopy. Laparoscopy confirmed proper placement of the port. No injuries to underlying structures. Additional laparoscopy reveals distended gallbladder in the usual anatomic location, partially encased by omental adhesions. Under direct laparoscopy, a 12 mm epigastric and two 5 mm right lateral subcostal ports were placed after the overlying skin were infiltrated with 0.25% Marcaine with epinephrine. Appropriate incision was made. The patient was placed in a reverse Trendelenburg position, rotated to her left. I introduced a Prestige grasper through the right lateral subcostal port grasping the fundus of the gallbladder, which was elevated cephalad. Omental adhesions were then carefully taken down from the gallbladder using a [place] dissector with cautery. An intrahepatic gallbladder was visualized. A second Prestige grasper was introduced through the right medial subcostal port grasping the Emeka's pouch, which was retracted laterally. Anterior coursing cystic artery was carefully dissected free from surrounding structures and divided between clips, applying 2 clips proximally and 1 clip at the junction of the cystic artery and gallbladder. Cystic duct was then dissected free from surrounding structures and divided between clips in a similar fashion. An intrahepatic gallbladder was removed from the liver bed using cautery with good hemostasis. This was passed off the operative field for pathology. Operative site was inspected for good hemostasis. Finding no other pathology, laparoscopy was terminated. Fascia of the epigastric port was closed using 0 Vicryl suture and Endoclosure device on the laparoscopy. The abdomen was desufflated. All ports and instruments removed and accounted for. Skin incisions were closed using 4-0 Monocryl suture in subcuticular fashion. Dermabond was applied over incisional closure. The patient tolerated the operation without any apparent complication and was returned to recovery room in satisfactory condition. Job ID: [id number]
[2019-08-25] MEDS: cefTRIAXone\\ROCEPHIN 1 GM in Sodium Chloride 0.9% 100 ML IVPB SCH (02:56)
[2019-08-25] MEDS: metroNIDAZOLE 500 MG in Premix Bag 1 BAG IVPB SCH ×3 (05:21→23:00)
[2019-08-25 05:39] LABS: Anion Gap 14 mmol/L (10-20); BUN (Urea Nitrogen) 6 mg/dL (7.0-18.7); Calc. Creatinine Clearance 158 mL/min (70-130); Calcium 8.3 mg/dL (7.8-10.44); Carbon Dioxide 25 mmol/L (22-29); Chloride 102 mmol/L (98-107); Estimated GFR-MDRD Greater than 90; Glucose 160 mg/dL (70-105); Magnesium 1.6 mg/dL (1.6-2.6); Potassium 3.3 mmol/L (3.5-5.1); Sodium 138 mmol/L (136-145)
[2019-08-25 05:43] LABS: ALT (SGPT) 45 U/L (8-55); AST (SGOT) 49 U/L (5-34); Albumin 3.2 g/dL (3.5-5.0); Alkaline Phosphatase 63 U/L (40-110); Bilirubin, Direct 0.1 mg/dL (0.1-0.3); Bilirubin, Total 0.2 mg/dL (0.2-1.2); Phosphorus 4.2 mg/dL (2.3-4.7); Protein, Total 6.2 g/dL (6.0-8.3)
[2019-08-25 05:56] LABS: Band 5 % (5-11); Eosinophils 1 % (0-10); Hemoglobin 10.9 g/dL (12.0-16.0); Lymphocytes 38 % (21-51); MDiff Complete? YES; Mean Corpuscular HGB CONC 33.4 g/dL (32.0-36.0); Mean Platelet Volume 8.9 fL (7.4-10.4); Monocytes 5 % (0-10); Neutrophil 51 % (42-75); Platelet Count 254 thou/uL (130-400); Red Blood Cell (RBC) Count 3.75 mill/uL (4.20-5.40); White Blood Cell (WBC) Count 7.3 thou/uL (4.8-10.8)
--- NOTE | 2019-08-25 08:47 | PDOC.HOSPP ---
- Subjective Encounter Date: 08/25/19 Encounter Time: 11:00 Subjective: Patient eating well. Abdomen a little sore and had a little nausea earlier but no vomiting. Ambulating well. Passing flatus. Understands how to give herself insulin. - Objective Vital Signs & Weight: Vital Signs (12 hours) Temp Pulse Resp BP Pulse Ox 08/25/19 07:43 98.1 F 100 14 130/86 97 08/25/19 03:25 98.3 F 91 16 136/84 97 08/24/19 23:22 98.8 F 99 16 134/92 H 100 08/24/19 21:35 98.9 F 111 H 18 130/86 95 Weight Admit Weight 131 lb Weight 131 lb Most Recent Monitor Data Heart Rate from ECG 98 NIBP 126/72 NIBP BP-Mean 90 Respiration from ECG 19 SpO2 98 I&O: 08/24/19 08/25/19 08/26/19 06:59 06:59 06:59 Intake Total 4123.2 1854.5 Output Total 4800 Balance -676.8 1854.5 Result Diagrams: 08/25/19 05:01 08/25/19 05:01 Additional Labs: Accuchecks 08/25/19 08/24/19 08/24/19 04:08 23:29 22:35 POC Glucose 163 H 211 H 227 H 08/24/19 16:14 POC Glucose 162 H Hospitalist ROS - Review of Systems Constitutional: denies: fever, chills Respiratory: denies: cough, dry, shortness of breath Cardiovascular: denies: chest pain, palpitations, orthopnea Gastrointestinal: denies: vomiting - Medication Medications: Active Medications Generic Name Dose Route Start Last Admin Trade Name Freq PRN Reason Stop Dose Admin Acetaminophen 1,000 mg 08/24/19 20:00 08/25/19 01:49 Tylenol LA Not Given Q6H [facility] Enoxaparin Sodium 40 mg 08/22/19 09:00 08/24/19 08:47 Lovenox SC Not Given 0900 [facility] Ceftriaxone Sodium 1 gm/ 100 mls @ 200 mls/hr 08/22/19 03:00 08/25/19 02:56 Sodium Chloride IVPB 100 mls Q24HR COLE Administration Metronidazole 500 mg/ Device 100 mls @ 100 mls/hr 08/22/19 06:00 08/25/19 05: 21 IVPB 100 mls Q8HR COLE Administration Potassium Chloride 40 meq/ 270 mls @ 135 mls/hr 08/22/19 03:06 08/23/19 09:35 Sodium Chloride IVPB 270 mls ASDIR PRN Administration FOR SERUM K+ 2.5 - 3.5 Potassium Phosphate 9 mmol/ 103 mls @ 25.75 mls/hr 08/22/19 03:06 08/23/19 04 :56 Sodium Chloride IVPB 103 mls ASDIR PRN Administration Phosphate 1.0-1.8 Sodium Chloride 1,000 mls @ 75 mls/hr 08/24/19 10:30 08/24/19 22:21 1/2 Normal Saline IV 1,000 mls .[id number] COLE Administration Insulin Glargine 30 units/ 0.3 mls @ 0 mls/hr 08/24/19 21:00 08/24/19 22:51 Miscellaneous Medication SC Not Given HS [facility] Insulin Human Regular 0 units 08/24/19 06:17 08/24/19 22:43 Humulin R SC 3 units .MILD SLIDING SCALE PRN Administration Mild Correctional Scale Miscellaneous Medication 1 pkt 08/22/19 03:06 08/22/19 04:31 Phos-Nak PO 1 pkt TIDPRN PRN Administration FOR PHOS LEVEL 1.0 - 1.8 Morphine Sulfate 4 mg 08/22/19 15:38 08/25/19 03:58 Morphine SLOW IVP 4 mg Q4H PRN Administration Severe Pain (7-10) Ondansetron HCl 4 mg 08/22/19 03:00 08/25/19 00:09 Zofran IVP 4 mg Q6H PRN Administration Nausea/Vomiting Pantoprazole Sodium 40 mg 08/24/19 09:00 08/24/19 22:04 Protonix IVP Not Given DAILY COLE - Exam General Appearance: NAD, awake alert Eye: anicteric sclera ENT: moist mucosa Heart: RRR, no murmur, no gallops, no rubs Respiratory: CTAB, no wheezes, no rales, no ronchi Gastrointestinal: soft, non-distended, normal bowel sounds, no palpable masses Gastrointestinal - other findings: mild TTP Psychiatric: normal affect, normal behavior, A&O x 3 Hosp A/P (1) Diabetic ketoacidosis Code(s): E11.10 - TYPE 2 DIABETES MELLITUS WITH KETOACIDOSIS WITHOUT COMA Status: Resolved (2) Diabetes mellitus Code(s): E11.9 - TYPE 2 DIABETES MELLITUS WITHOUT COMPLICATIONS Status: Acute (3) Acute acalculous cholecystitis Code(s): K81.0 - ACUTE CHOLECYSTITIS Status: Resolved Plan: s/p lap reinaldo 08/24/2019 - Plan Leukocytosis resolved, on Rocephin and Metronidazole, Blood cultures NGTD Normoglycemic DKA, unusual presentation but has responded very well to IV sugar and insulin, gap closed and bicarb normalized Transitioned to long acting insulin with good control of blood sugars s/p lap reinaldo 08/24/2019 HbA1c 12, patient has likely had undiagnosed DM for some time, possibly ever since her . May be Type 1 now, will need insulin on discharge. Plan on education, instruction on how to give insulin and check blood sugars, likely home tomorrow with a few more days of oral antibiotics. DVT proph: Lovenox and SCDs
[2019-08-25] MEDS: Pantoprazole 40 MG VIAL IVP SCH (09:04)
[2019-08-25] MEDS: Enoxaparin Sodium 40 MG/0.4 ML SYRINGE SC SCH (09:04)
[2019-08-25] MEDS: Insulin Regular 300 UNITS/3 ML VIAL SC PRN ×4 (09:08→23:56)
--- NOTE | 2019-08-25 12:32 | PRG ---
DATE OF SERVICE: 08/25/2019 SUBJECTIVE: Ms. Harper is a 19-year-old woman who is postop day #1, status post laparoscopic cholecystectomy. She recently developed DKA, which was thought to be secondary to acute acalculous cholecystitis. Currently DKA is resolved. This morning, she reports adequate pain control. She is tolerating ice chips. She ambulates with minimum difficulty. OBJECTIVE: VITAL SIGNS: Remain stable. Blood pressure 136/84, pulse 91, respiratory rate 16, temperature 98.3 degrees Fahrenheit, oxygen saturation 97% on room air. HEART: Regular rate and rhythm. LUNGS: Clear to auscultation bilaterally. Breathing, regular and nonlabored. ABDOMEN: Soft and nondistended. Incisions are intact, clean, dry with incisional tenderness to palpation. Clearly, she has no peritoneal signs on examination. LABORATORY FINDINGS: Today include a CBC with 7300 white blood cells, hemoglobin and hematocrit are 10.9 and 32.6 respectively. Platelet count is 254,000. Differential counts are 51% neutrophils, 5 bands, 38 lymphocytes, 5 monocytes, and 1 eosinophil. Metabolic profile; sodium 138, potassium 3.3, chloride is 102, bicarb is 25, BUN is 6, creatinine 0.53, glucose 160, AST and ALT 49 and 45 respectively. Total bilirubin is 0.2. IMPRESSION: Postop day #1, status post laparoscopic cholecystectomy, otherwise hemodynamically stable. PLAN: 1. Advance diet as tolerated. 2. The patient may be discharged at the discretion of the primary service. She follows up with me in the Surgery [facility] in 2 weeks. Job ID: [id number]
[2019-08-25] MEDS: Sodium Chloride 0.45% 1,000 ML IV SCH (14:54)
[2019-08-25] MEDS: Acetaminophen 500 MG TAB PO SCH ×2 (17:33→23:01)
[2019-08-25] MEDS ORDERED: Acetaminophen/Codeine 30-300mg Tablet PO PRN (18:24)
[2019-08-25] MEDS: Insulin Glargine 30 UNITS in Pre-Filled Syringe 1 EACH SC SCH (20:22)
[2019-08-26] MEDS: cefTRIAXone\\ROCEPHIN 1 GM in Sodium Chloride 0.9% 100 ML IVPB SCH (02:14)
[2019-08-26] MEDS: Sodium Chloride 0.45% 1,000 ML IV SCH (02:18)
[2019-08-26] MEDS: metroNIDAZOLE 500 MG in Premix Bag 1 BAG IVPB SCH ×2 (05:04→13:34)
[2019-08-26] MEDS: Insulin Regular 300 UNITS/3 ML VIAL SC PRN ×3 (05:05→13:34)
[2019-08-26] MEDS: Acetaminophen 500 MG TAB PO SCH ×2 (05:05→13:33)
[2019-08-26 07:42] LABS: #Lymphocytes 2.2 thou/uL (1.20-3.40); #Monocytes 0.5 thou/uL (0.11-0.59); #Neutrophils 2.6 thou/uL (1.40-6.50); %Basophils 0.2 % (0.0-1.0); %Eosinophils 0.8 % (0.0-10.0); %Lymphocytes 41.8 % (21.0-51.0); %Monocytes 8.6 % (0.0-10.0); %Neutrophils 48.6 % (42.0-75.0); Hemoglobin 11.4 g/dL (12.0-16.0); Mean Corpuscular HGB CONC 34.5 g/dL (32.0-36.0); Mean Corpuscular Hemoglobin 29.9 pg (27.0-31.0); Mean Corpuscular Volume 86.7 fL (78.0-98.0); Mean Platelet Volume 8.3 fL (7.4-10.4); Platelet Count 274 thou/uL (130-400); RBC Distribution Width 11.9 % (11.5-14.5); Red Blood Cell (RBC) Count 3.81 mill/uL (4.20-5.40); White Blood Cell (WBC) Count 5.4 thou/uL (4.8-10.8)
[2019-08-26 08:01] LABS: Anion Gap 12 mmol/L (10-20); BUN (Urea Nitrogen) 6 mg/dL (7.0-18.7); Calc. Creatinine Clearance 167 mL/min (70-130); Calcium 8.4 mg/dL (7.8-10.44); Carbon Dioxide 28 mmol/L (22-29); Chloride 100 mmol/L (98-107); Estimated GFR-MDRD Greater than 90; Glucose 167 mg/dL (70-105); Sodium 137 mmol/L (136-145)
[2019-08-26] MEDS: Enoxaparin Sodium 40 MG/0.4 ML SYRINGE SC SCH (10:11)
--- NOTE | 2019-08-26 10:58 | PRG ---
DATE OF SERVICE: 08/26/2019 SUBJECTIVE: Ms. Harper is 19 years old, postoperative day 2 status post laparoscopic cholecystectomy. The patient reports doing good. Pain is well controlled. Her vital signs have been stable. She reports passed some gas, but not yet having bowel Pain is well controlled. Dr. Pruitt has seen her this morning. Her diet will be advanced. Encouraged physical activity. From General Surgery standpoint, the patient is good to be discharged and this is requested from Primary Service to be discharged at this time. She will follow up with [facility] Surgery [facility] in 2 weeks. Job ID: [id number] [facility]
[2019-08-26] MEDS: Pantoprazole 40 MG VIAL IVP SCH (11:33)
[2019-08-26] MEDS ORDERED: Potassium Chloride 20 MEQ TAB PO SCH (12:00)
--- NOTE | 2019-08-26 13:44 | DIS ---
DATE OF ADMISSION: 08/22/2019 DATE OF DISCHARGE: 08/26/2019 CONSULTANTS: Dr. Pruitt of General Surgery. PROCEDURES PERFORMED: Laparoscopic cholecystectomy on August 24. MEDICATIONS: Medications were reconciled at discharge: New medications: 1. Tylenol 1000 mg every 6 hours as needed for pain. 2. Cefdinir 300 mg every 12 hours for a total of 4 doses starting tomorrow. 3. Lantus 30 units injected subcutaneous at night. 4. Disposable needles that go along with the Lantus SoloStar Pen. 5. Flagyl 500 mg every 8 hours for six doses total. Separately ordered is a glucometer test strips, lancets and alcohol swab to test. FINAL DIAGNOSES: 1. Diabetic ketoacidosis, resolved. 2. New diagnosis of diabetes mellitus, unknown type. 3. Acalculous cholecystitis, now status post laparoscopic cholecystectomy. 4. Leukocytosis, resolved. 5. Hypokalemia. 6. Fatty liver. HISTORY OF PRESENT ILLNESS: Ms. Leroy Hardwick is a now 19-year-old female with history of gestational diabetes, who presented to the emergency room with a complaint of pain, nausea, vomiting. The patient was found to be in DKA, admitted to the ICU and started on insulin drip per protocol. She was also started on antibiotics with Rocephin and Flagyl. HOSPITAL COURSE: The patient was managed on IV antibiotics, IV insulin, IV fluids for hydration, and tolerated this well. She was transitioned over to once daily Lantus with insulin sliding scale. The type of diabetes has not been characterized here. Her hemoglobin A1c is 12.2, she will need follow up in the outpatient setting to characterize the type of diabetes, and adjust/titrate medications to affect. I am discharging her simply with once daily Lantus and close followup with her primary care provider. For the acalculous cholecystitis, the patient was evaluated with HIDA scan on August 23, which showed chronic acalculous cholecystitis and gallbladder dyskinesia. She was evaluated by Dr. Pruitt of General Surgery and underwent laparoscopic cholecystectomy on August 24. She is overall doing well, ambulating, tolerating a carbohydrate consistent diet, and does meet criteria for discharge to home. The patient will need to be monitoring her blood sugars at least twice a day, and any time that she is having symptoms that may suggest either an elevated or low blood sugar. Her blood sugars have been ranging here from 167 this morning to a high of 253 before lunch. Given this new diagnosis and the goal to get the patient started on treatment, only one type of insulin is being prescribed at discharge. For pain, the patient has only required tylenol in the past 24 hours. She had an unusual reaction to tramadol the day prior which resolved. She can continue tylenol as needed. PHYSICAL EXAMINATION: VITAL SIGNS: On day of discharge, blood pressure 131/86, pulse 92, temp 98.6, respirations 20, sat 100% on room air. GENERAL: Awake, alert, responsive, in no apparent distress. Able to speak in full sentences. LUNGS: Clear to auscultation bilateral. HEART: Normal S1, S2. Regular rate and rhythm. ABDOMEN: Soft with present bowel sounds. EXTREMITIES: No clubbing, cyanosis, or edema. LABORATORY DATA: Foote findings and test results: CBC today; 5.4, 11.4, 33.0, 274, on admission, her white blood cell count was 15.5. VBGs on admission 7.17, 32.7, 33. Bicarbonate was 12. Renal panel today; 137, 3.0, 128, 6, 0.5, 167. LFTs on August 25, T bilirubin 0.2, AST 49, ALT 45, alkaline phosphatase 63, total protein 6.2, albumin 3.2. Hemoglobin A1c was 12.2. On admission, her CO2 level was less than 8. Serum test was negative. Urine culture and blood cultures from August 22, no growth. Surgical specimen report shows chronic cholecystitis. Nuclear medicine hepatobiliary scan on August 23, findings consistent with chronic acalculous cholecystitis and gallbladder dyskinesia. Abdominal ultrasound on August 21 shows no evidence of gallstones, minimal fluid or edema adjacent to the gallbladder but no gallbladder wall thickening, positive Morrow sign and liver with diffuse fatty change and slightly enlarged. FOLLOWUP: Dr. Pruitt on September 06, 2019, 10:30 a.m. Following up with the primary care provider about new diagnosis of diabetes and adjust medications, about fatty liver and discussing diet, and any other health needs. Follow up with the living well class with diabetes. The patient received information. ACTIVITIES: As tolerated. DIET: Carbohydrate consistent. CODE STATUS: Full. DISCHARGE DISPOSITION: Home. Reviewed with patient this hospitalization, the new diagnoses, the return for care precautions, the importance of checking her blood sugars and to seek care precautions. She demonstrates understanding. TIME SPENT: Total time coordinating discharge is 40 minutes. Job ID: [id number] [email or web address]
[2019-08-26 15:27] VITALS: BP 151/78; TEMP 98.4
== END 2019-08-26 17:30 | disposition home or self-care (01) | DRG 417 ==
LOC: ERS 22:28 → IMCU/EMU 08-22 01:28 → SURG A 08-24 15:42 → SJJU 08-24 22:04
PROVIDERS: ADMIT Internal Medicine; ATTEND Internal Medicine
PROC: 0FT44ZZ Resection of Gallbladder, Percutaneous Endoscopic Approach (ICD-10-PCS; principal; 2019-08-24)
DX: K81.0 Acute cholecystitis (principal); E11.10 Type 2 diabetes mellitus with ketoacidosis without coma; E87.2 Acidosis; I10 Essential (primary) hypertension; E11.649 Type 2 diabetes mellitus with hypoglycemia without coma; E87.6 Hypokalemia; K76.0 Fatty (change of) liver, not elsewhere classified
CPT/HCPCS: 36415; 36416; 76705; 78227; 80048; 80076; 80306; 80307; 82010; 82330; 82803; 83036; 83605; 83690; 83735; 84100; 84703; 85025; 87040; 87086; 88304; 93005; 96361; 96374; 96375; A9537; C9113; J0696; J1200; J1650; J1815; J1885; J2001; J2250; J2270; J2405; J2704; J2765; J3010; J3480; J3490; J7050; S0020